=== PATIENT | female | born 1955 | race Caucasian/White ===

== ENCOUNTER 2016-08-21 16:37 | Inpatient (IN) | payer OTHER ==
--- NOTE | ~2016-08-21 | HP ---
Unit #: [id number] #: [id number] Patient: JOSHUA ARREDONDO [id number] [address] [place], [place] [address] [id number] I MR#: [id number] NAME: JOSHUA ARREDONDO ROOM: 468 Age: 61 Sex: F Admission Date: 08/21/2016 : 1955 Attending Physician: Shayna Pichardo M.D. Primary Care Physician: Dahlia George M.D. HISTORY AND PHYSICAL CHIEF COMPLAINT Bright red blood per rectum. DISCUSSION This is a 61-year-old very pleasant lady with past medical history of hypothyroidism, hypertension, dyslipidemia, acid reflux. She is telling me that she had been having some epigastric discomfort about two weeks ago. She had a workup done and she was found to be H. pylori and she was started on tetracycline and Biaxin and lansoprazole, and then she said she was improving and she was having some nausea which is also being resolved, but today, she says she had some bright red blood per rectum which was large episode and she called PMD and was told to come to the emergency room and she had been eventually admitted for further workup and evaluation. She was found to have a little abnormal LFT, AST 60, ALT 63, ALT 103. She denied chest pain. She has some nausea but no vomiting, no abdominal pain. She denies diaphoresis, palpitations, or any other complaint. PAST MEDICAL HISTORY 1. Hypothyroidism. 2. Hypertension. 3. Dyslipidemia. 4. Gastroesophageal reflux disease. 5. Recently diagnosed with H. pylori being treated. PAST SURGICAL HISTORY 1. Appendectomy. 2. Hysterectomy. 3. Cholecystectomy. SOCIAL HISTORY She says that she does not smoke, she quit thirty years ago, does not drink alcohol, no illicit drug use. FAMILY HISTORY Mother with colon cancer at age 60, sister has also breast cancer. ALLERGIES She is allergic to erythromycin. HOME MEDICATIONS Is the followin. Losartan 50 mg daily Unit #: [id number] #: [id number] Patient: JOSHUA ARREDONDO 2. Hydrochlorothiazide 25 mg daily 3. Zofran 4 mg four times daily p.r.n. 4. Tetracycline 500 mg four times daily 5. Lansoprazole 30 mg twice a day 6. Biaxin 500 mg twice daily REVIEW OF SYSTEMS All review of systems of systems negative except in history of present illness. PHYSICAL EXAMINATION GENERAL: Middle-aged female lying in the bed comfortably, currently not in any distress. She is alert, awake, and oriented x3, comfortable, not in any distress. VITAL SIGNS: Current vitals are the following, temperature 98.2, heart rate 88, respiratory rate 16, and blood pressure 127/76, oxygen 100% on room air. HEENT EXAMINATION: Pupils equal reactive to light and accommodation. Head: Normocephalic and atraumatic. NECK: Supple. No jugular venous distention. No thyromegaly. LUNGS: Clear to auscultation. No rhonchi. No wheezing. HEART: S1 and S2, regular rate and rhythm. ABDOMEN: Soft, nontender, and nondistended. Bowel sounds are positive. RECTAL EXAM: Which was done by the emergency room physician, Hemoccult positive. SKIN: No rash. EXTREMITIES: No cyanosis, no clubbing, and no edema. NEUROLOGIC: Alert and oriented x4, cranial nerves II through XII intact. Neuro grossly intact. No focal neurological deficit, power 5/5 on both sides. PSYCHAITRIC: She appears normal, depressed mood. DIAGNOSTIC STUDIES LABORATORY: Laboratory workup is following, today, white count is 7, hemoglobin 13, hematocrit 37, platelets 248, INR is 1.2. Chemistries, sodium 135, potassium 3.3, chloride 99, glucose 104, BUN 26, creatinine 1.2, AST 60, ALT 63, alkaline phosphatase 103, bilirubin total 3.4. Lipase is 24. IMAGING: CT scan of the abdomen shows no acute finding, moderate sized hiatal hernia, diffuse colonic diverticulosis. ASSESSMENT/PLAN 1. Lower GI bleed, will admit the patient and start on clear liquid diet, H and H x2 q.6h, ask GI doctor, Dr. Everett to evaluate. 2. Abnormal LFT, I will get ultrasound and will repeat the CBC and CMP in the morning and hepatitis profile. 3. Recently diagnosed with H. pylori being treated. 4. History of hypothyroidism. 5. Hypertension. 6. Dyslipidemia. 7. Gastroesophageal reflux disease. 8. DVT prophylaxis, will place the patient on SCDs. Unit #: [id number] #: [id number] Patient: JOSHUA ARREDONDO Dictated by Ulysses Gregg/marcelo TD: 08/22/2016 13:48 JOB #: [id number] HISTORY AND PHYSICAL Page 1 of 1 X X HISTORY AND PHYSICAL
--- NOTE | ~2016-08-21 | MR145 ---
[facility] A Service of [facility] RADIOLOGY TEXT RESULTS PATIENT: JOSHUA ARREDONDO LOCATION: [facility] 468- : [birth year] UNIT #: [id number] AGE: [address]: Shayna Pichardo MD SEX: F ORDER DR: [id number] [facility] [address] [facility] [place], [place] [address] [id number] I MR#: [id number] Acc #: [id number] NAME: JOSHUA ARREDONDO : 1955 SEX: F STUDY DATE/TIME: 08/23/2016 12:26 UNIT: [facility] ROOM: [facility] STUDY DESCRIPTION: MR MRCP WWo Contrast Attending Physician: Shayna Pichardo M.D. Ordering Physician: Otto Everett M.D. Primary Care Physician: Dahlia George M.D. MRI CENTER REPORT This report is preliminary unless electronic signature is present. EXAM MRI abdomen with and without contrast MRCP protocol INDICATIONS Elevated liver enzyme levels. Concern for biliary obstruction. PROCEDURE Multiplanar, multisequence MR imaging of the abdomen prior to and following 17 mL of MultiHance COMPARISON STUDIES CT from 08/21/2016 FINDINGS Abdomen without contrast: The liver has normal size and morphology. There is severe hepatic steatosis. Previous cholecystectomy. Common duct measures 6-7 mm which is minimally prominent for the patient's age. There is no evidence for choledocholithiasis. Pancreatic duct nondilated. There is a moderate sized hiatal hernia. The spleen kidneys and pancreas have normal signal. There is a 7 mm benign left adrenal adenoma. There are uncomplicated diverticula in the colon. Abdomen with contrast: No abnormal enhancement in the abdomen. IMPRESSION 1. Mild prominence of the common duct for the patient's age. Favored to represent postcholecystectomy change. There is no evidence for choledocholithiasis or obstructing mass. 2. Significant hepatic steatosis. 3. A 7 mm benign left adrenal adenoma [facility] A Service of [facility] RADIOLOGY TEXT RESULTS PATIENT: JOSHUA ARREDONDO LOCATION: [facility] 468-01 : [birth year] UNIT #: [id number] AGE: [address]: Shayna Pichardo MD SEX: F ORDER DR: Dictated by... Jeet Barrios M.D. THIS IS AN ELECTRONICALLY VERIFIED REPORT Jeet Barrios M.D. at 08/24/2016 7:35 AM RUBIOD/charlotte TD: 08/23/2016 23:38 JOB #: [id number] MRI CENTER REPORT Page 1 of 1 COPY
--- NOTE | ~2016-08-21 | OR ---
Unit #: [id number] #: [id number] Patient: JOSHUA ARREDONDO [id number] [address] [address] [id number] I MR#: [id number] NAME: JOSHUA ARREDONDO. ROOM: 468 Date of Procedure: 08/22/2016 Admission Date: 08/21/2016 Surgeon: Otto Everett M.D. : 1955 Attending Physician: Shayna Pichardo M.D. Primary Care Physician: Dahlia George M.D. OPERATIVE REPORT PROCEDURE PERFORMED Esophagogastroduodenoscopy with biopsies. INDICATIONS FOR PROCEDURE The patient with persistent upper abdominal pain, nausea, vomiting, recent history of H pylori gastritis, undergoing evaluation with upper endoscopy. MEDICATIONS Monitored anesthesia. POSTOPERATIVE FINDINGS 1. Large hiatal hernia along with nonobstructing esophageal ring at GE junction. 2. Chronic appearing gastritis. Multiple large gastric polyps seen. 3. 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 4. Normal duodenum and distal duodenum. PLAN 1. Aggressive PPI therapy. 2. Follow up on the pathology report. DESCRIPTION OF PROCEDURE The patient was explained of the procedure, risks, and benefits along with the risks and benefits of sedation. She was brought to the endoscopy room. Conscious sedation was used. The scope was then passed down the mouth into the esophagus, stomach, duodenum, and distal duodenum. Findings as described. Biopsies taken in the antrum. Gently, the scope was pulled out. She tolerated it well. No major complications were seen. Dictated by... Ulysses Lund/alessandra TD: 08/22/2016 22:23 JOB #: [id number] Unit #: [id number] #: [id number] Patient: JOSHUA ARREDONDO OPERATIVE REPORT Page 1 of 1 X Otto Everett MD X PROCEDURE OPERATIVE NOTE
--- NOTE | ~2016-08-21 | US88 ---
[facility] A Service of [facility] RADIOLOGY TEXT RESULTS PATIENT: JOSHUA ARREDONDO LOCATION: [facility] 468-01 : [birth year] UNIT #: [id number] AGE: [address]: Shayna Pichardo MD SEX: F ORDER DR: [id number] [facility] [address] [place], [place] [address] [id number] I MR#: [id number] Acc #: [id number] NAME: JOSHUA ARREDONDO. : 1955 SEX: F STUDY DATE/TIME: 08/22/2016 13:12 UNIT: [facility] ROOM: [facility] STUDY DESCRIPTION: US Liver or Hepatic Attending Physician: Shayna Pichardo M.D. Ordering Physician: Yudith Cage M.D. Primary Care Physician: Dahlia George M.D. MEDICAL IMAGING REPORT This report is preliminary unless electronic signature is present EXAM Liver ultrasound HISTORY Elevated liver enzymes. FINDINGS Ultrasound examination of the liver demonstrates coarsened and echogenic hepatic parenchyma, corresponding to fatty infiltration of the liver noted on CT abdomen yesterday. No hepatic mass. No biliary ductal dilatation. Common bile duct measures 6 mm in diameter. The gallbladder is absent. No perihepatic ascites. Limited survey of the right kidney demonstrates no hydronephrosis. IMPRESSION 1. Coarsened hepatic echotexture corresponding to fatty infiltration of the liver noted on CT yesterday. 2. No biliary ductal dilatation. 3. Gallbladder is absent. 4. No hepatic mass or perihepatic fluid. Dictated by... Angel Durham M.D. THIS IS AN ELECTRONICALLY VERIFIED REPORT Angel Durham M.D. at 08/23/2016 3:01 PM EVI/[place] TD: 08/23/2016 07:28 JOB #: [id number] MEDICAL IMAGING REPORT Page 1 of 1 COPY
--- NOTE | ~2016-08-21 | CT4 ---
[facility] A Service of [facility] RADIOLOGY TEXT RESULTS PATIENT: JOSHUA ARREDONDO LOCATION: [facility] 468-01 : [birth year] UNIT #: [id number] AGE: [address]: Shayna Pichardo MD SEX: F ORDER DR: [id number] [facility] [address] [facility] [place], [place] [address] [id number] I MR#: [id number] Acc #: [id number] NAME: JOSHUA ARREDONDO. : 1955 SEX: F STUDY DATE/TIME: 08/21/2016 17:16 UNIT: [facility] ROOM: 95220 STUDY DESCRIPTION: CT Abd and Pelv Wo Cont Attending Physician: Shayna Pichardo M.D. Ordering Physician: Checo Lyons D.O. Primary Care Physician: Dahlia George M.D. MEDICAL IMAGING REPORT This report is preliminary unless electronic signature is present EXAM CT abdomen and pelvis without contrast. HISTORY Rectal bleeding and nausea today. TECHNIQUE CT abdomen and pelvis was performed without contrast. This CT exam was performed with one or more of the following radiation dose reduction techniques: automatic exposure control, adjustment of mA and/or kV according to patient size, and iterative reconstruction. FINDINGS CT ABDOMEN: Moderate sized hiatal hernia. Diffuse fatty infiltration of the liver. Cholecystectomy. The spleen, pancreas, kidneys, and adrenal glands are unremarkable. No renal calculi. No hydronephrosis. Moderate diffuse colonic diverticulosis, but no diverticulitis. No free fluid. No inflammatory stranding. Normal caliber abdominal aorta. CT PELVIS: Hysterectomy and appendectomy. Sigmoid diverticulosis. The urinary bladder is normal. IMPRESSION 1. No acute findings in the abdomen or pelvis. 2. Moderate sized hiatal hernia. 3. Fatty infiltration of the liver. 4. Cholecystectomy, appendectomy, and hysterectomy. 5. No urinary calculi or obstruction. 6. Diffuse colonic diverticulosis but no diverticulitis. [facility] A Service of [facility] RADIOLOGY TEXT RESULTS PATIENT: JOSHUA ARREDONDO LOCATION: [place] [address] : [birth year] UNIT #: [id number] AGE: [address]: Shayna Pichardo MD SEX: F ORDER DR: Dictated by... Angel Durham M.D. THIS IS AN ELECTRONICALLY VERIFIED REPORT Angel Durham M.D. at 08/22/2016 5:17 PM DFL/sherry TD: 08/22/2016 08:41 JOB #: [id number] MEDICAL IMAGING REPORT Page 1 of 1 COPY
--- NOTE | ~2016-08-21 | CO ---
Unit #: [id number] #: [id number] Patient: JOSHUA ARREDONDO [id number] [address] [place], [place] [address] [id number] I MR#: [id number] NAME: JOSHUA ARREDONDO. ROOM: 468 Age: 61 Sex: F Admission Date: 08/21/2016 : 1955 Attending Physician: Shayna Pichardo M.D. Primary Care Physician: Dahlia George M.D. Consultation Date: 08/22/2016 CONSULTATION REPORT REASON FOR CONSULTATION Abdominal pain and blood in the stool. HISTORY OF PRESENTING ILLNESS Ms. Arredondo is a pleasant 61-year-old female. She presented to the emergency room as advised by her primary care. She has been treated for H pylori over last couple of weeks with antibiotics for severe upper abdominal pain and persistent nausea and started with blood in the stool day before yesterday. She had bright red blood in the stool in several times. It was small to moderate in amount. Her abdominal pain is somewhat better today. She has no hematemesis. She has no fever, no chills. Her abdominal pain 2 weeks ago was moderate to severe with radiation to the back; however, she has not had any recurrent severe pain since then. PAST MEDICAL HISTORY Significant for gallbladder surgery long time ago for gallbladder stones, also with appendicectomy, and hysterectomy. MEDICATIONS At home included Synthroid, losartan, Crestor, lansoprazole, and recently with clarithromycin and tetracycline. ALLERGIES To erythromycin. FAMILY HISTORY Mother with colon cancer. The patient has been getting colonoscopies regularly, last one was about 3-1/2 years ago. SOCIAL HISTORY Nonsmoker. Nonalcoholic. REVIEW OF SYSTEMS A complete 10-point review of systems was done. She has never had any previously noted liver disease. Review of all other systems was negative also. PHYSICAL EXAMINATION VITAL SIGNS: Stable. T-max 99, pulse 88, respirations 16, blood pressure 127/76. HEENT: Pupils equal and reactive. Sclerae anicteric. Oral mucosa moist. NECK: No JVD. No lymphadenopathy. Unit #: [id number] #: [id number] Patient: JOSHUA ARREDONDO CHEST: Clear to auscultation bilaterally. CARDIOVASCULAR: Regular rate and rhythm. No murmurs. ABDOMEN: Soft, nontender, and nondistended. EXTREMITIES: Without clubbing, cyanosis, or edema. NEUROLOGIC: Intact grossly. No focal deficits. SKIN: Warm and dry. DIAGNOSTIC STUDIES LABORATORY RESULTS: Her hemoglobin is 11, white count of 7, and platelet count of 248. Alk phos 103, lipase of 24, AST and ALT both are 63 and 60, and total bilirubin elevated at 3.4. ASSESSMENT AND PLAN 1. The patient with significant upper abdominal pain, persistent nausea, history of Helicobacter pylori, peptic ulcer disease versus severe gastritis versus others. I will plan on doing an upper endoscopy for evaluation at this time. 2. Blood in the stool. The patient with very high risk for colorectal cancer, has been getting colonoscopies regularly, possibly outpatient colonoscopy to be planned over next few days unless there is a significant drop in hemoglobin. 3. Abdominal pain does suggest possibility of biliary colic, LFT abnormalities also. We will plan on doing an MRCP for further evaluation of the same. 4. Hypertension. 5. Hyperlipidemia. Thank you, Dr. Harrison, for this interesting consult. We will follow along. Dictated by... Otto Everett M.D. BRANDY/alessandra TD: 08/22/2016 22:53 JOB #: [id number] CONSULTATION REPORT Page 1 of 1 X Otto Everett MD CONSULTATION REPORT
--- NOTE | ~2016-08-21 | DS ---
Unit #: [id number] #: [id number] Patient: JOSHUA ARREDONDO [id number] [address] [place], [place] [address] [id number] I MR#: [id number] NAME: JOSHUA ARREDONDO. ROOM: 468 Age: 61 Sex: F Admission Date: 08/21/2016 : 1955 Discharge Date: 08/24/2016 Attending Physician: Shayna Pichardo M.D. Primary Care Physician: Dahlia George M.D. DISCHARGE SUMMARY REASON FOR ADMISSION Bright red blood per rectum. HISTORY OF PRESENT ILLNESS/HOSPITAL COURSE The patient is a very pleasant 61-year-old female with underlying history of hypothyroidism, hypertension, hyperlipidemia, as well as GERD. She recently was diagnosed with H. pylori, followed by Dr. Sepulveda as an outpatient. She was placed on the routine medications and she developed bright red blood per rectum. She does have a strong family history of colon cancer, became concerned and presented to the ER for further evaluation. She was found to have elevated LFTs with an AST of 60, ALT of 63, and therefore, was admitted for the same and evaluation and further workup. Her liver enzymes actually started rising up through hospital course. At one time, her AST and ALT peaked at 95 and 98. Total bilirubin level was 3. This prompted GI consultation with Dr. Everett. The patient underwent upper GI endoscopy with biopsies on 08/22/2016, which did reveal a large hiatal hernia with nonobstructing esophageal ring at the GE junction, chronic appearing gastritis, and biopsies were taken. The patient also underwent an ultrasound of her liver on 08/22/2016 which did reveal coarsened hepatic echotexture consistent with fatty liver infiltration, but no other acute process. The patient also underwent an MRCP with and without contrast with findings consistent with mild prominence of the common bile duct, but there was favored to represent post cholecystectomy change and was no other obstructing mass which was noted. At this point in time, she is currently stable for discharge. It was noted that her potassium this morning was 2.6 and 2.8, it will be appropriately replenished at time of discharge. I will give her potassium supplement as well to take at time of discharge for additional 5 days. She should have a repeat CMP, CBC, as well as magnesium level in approximately 5 to 7 days. At the time of discharge, we will discontinue her hydrochlorothiazide as her blood pressure and systolic have remained in the 100s to 110s and certainly with her low potassium issue this may only exacerbate that problem. Unit #: [id number] #: [id number] Patient: JOSHUA ARREDONDO She is to follow up with primary care physician as stated above within 7 days. She will follow up with the gas main and line fitter for choice after time of discharge. FINAL DISCHARGE DIAGNOSES 1. Bright red blood per rectum. 2. Chronic gastritis. 3. Hypertension. 4. Hypothyroidism. 5. Hyperlipidemia. 6. Gastroesophageal reflux disease. 7. Recent diagnosis of Helicobacter pylori. 8. Hypokalemia. FINAL DISCHARGE MEDICATIONS Zofran 4 mg p.o. q.6 p.r.n., Cozaar 50 mg p.o. daily, Biaxin 500 mg p.o. b.i.d. stop date 08/25/2016, Prevacid 30 mg p.o. b.i.d., tetracycline 500 mg p.o. q.6, Synthroid 100 mcg p.o. daily, potassium K-Dur 20 mEq p.o. daily x5 days. DISCHARGE CONDITION Stable. DISCHARGE DISPOSITION Home. Dictated by... Ulysses Cavazos/alessandra TD: 08/24/2016 23:44 JOB #: [id number] DISCHARGE SUMMARY Page 1 of 1 X Shayna Pichardo MD X DISCHARGE SUMMARY
[2016-08-21 15:12] LABS: BASOPHIL# 0.1 X10e3 (0-0.3); BASOPHIL% 1.4 % (0-2.5); EOSINOPHIL# 0.2 X10e3 (0-0.7); EOSINOPHIL% 2.4 % (0.0-7.0); HEMATOCRIT 37.9 % (35.0-45.0); HEMOGLOBIN 12.1 gm/dL (12.0-16.0); LYMPHOCYTE% 28.1 % (17.0-45.0); MEAN CELL VOLUME 81.2 FL (83-96); MEAN PLATELET VOLUME 8.7 FL (6.5-11.5); MONOCYTE% 13.9 % (3.0-12.0); NEUTROPHIL# 3.8 X10e3 (1.5-7.1); NEUTROPHIL% 54.2 % (40-75); PLATELET COUNT 248 X10e3 (140-420); RED BLOOD COUNT 4.67 X10e (3.90-5.30); RED CELL DISTRIBUTION WIDTH 14.6 % (11.0-15.5)
[2016-08-21 15:27] LABS: DIFF IND NO
[2016-08-21 15:29] LABS: INR 1.2; PARTIAL THROMBOPLASTIN TIME 27.9 SECONDS (23.5-31.3); PROTHROMBIN TIME (PATIENT) 12.4 SECONDS (9.6-11.5)
[2016-08-21 15:32] LABS: ALBUMIN SERUM 3.8 g/dL (3.5-5.0); BILIRUBIN,TOTAL 3.4 mg/dL (0.2-2.0); BUN/CREATININE RATIO 21.66; CALCIUM SERUM 8.9 mg/dL (8.4-10.2); CREATININE SERUM 1.2 mg/dL (0.6-1.4); GLOM FILT RATE Estimated 49.4 mL/min (>60); POTASSIUM 3.3 mmol/L (3.5-5.1); PROTEIN TOTAL SERUM 7.1 g/dL (6.0-8.3)
[~2016-08-21 16:37] MED LIST: ASPIRIN; FLEXERIL10 M1 PO; HCTZ; NAPROSYN500 MG PO; NEXIUM; NIASPAN PO; OMACOR; SYNTHROID; ZETIA; ZOCOR
[2016-08-21] MEDS ORDERED: LOSARTAN POTASS50 MG PO (20:11)
[2016-08-21] MEDS ORDERED: HCTZ PO (20:12)
[2016-08-21] MEDS ORDERED: ZOFRAN ODT4 MG PO (20:13)
[2016-08-21] MEDS ORDERED: TETRACYCLINE PO (20:15)
[2016-08-21] MEDS ORDERED: LANSOPRAZOLE30 M2 PO (20:16)
[2016-08-21] MEDS ORDERED: CLARITHROMYCIN500 MG PO (20:16)
[2016-08-21] MEDS ORDERED: PREVACID PO (20:17)
[2016-08-21 20:24] LABS: URINE SOURCE CLEAN CATCH
[2016-08-21 20:31] LABS: URINE APPEARANCE CLEAR; URINE BILIRUBIN NEG (NEG); URINE BLOOD TRACE (NEG); URINE COLOR YELLOW; URINE GLUCOSE NEG (NEG); URINE KETONE NEG (NEG); URINE LEUKOCYTE ESTERASE TRACE (NEG); URINE NITRATE NEG (NEG); URINE PH 5.5 (5-8); URINE PROTEIN NEG (NEG); URINE SPECIFIC GRAVITY 1.014 (1.003-1.035); URINE UROBILINOGEN 0.2 MG/DL (NEG)
[2016-08-21 20:34] LABS: URBCS1 AUWI 0-2 /[HPF] (0-2); URINE BACTERIA AUWI NEG (NEGATIVE); URINE SQUAMOUS EPITHELIAL CELL NONE SEEN /[HPF]
[2016-08-21 20:35] LABS: CULTURE INDICATED? NO
[2016-08-22 02:43] LABS: HEMATOCRIT 34.6 % (35.0-45.0); HEMOGLOBIN 11.2 gm/dL (12.0-16.0)
[2016-08-22 10:22] LABS: BASOPHIL# 0.1 X10e3 (0-0.3); BASOPHIL% 1.9 % (0-2.5); EOSINOPHIL# 0.1 X10e3 (0-0.7); EOSINOPHIL% 2.3 % (0.0-7.0); HEMOGLOBIN 11.5 gm/dL (12.0-16.0); LYMPHOCYTE# 1.8 X10e3 (1.0-3.5); LYMPHOCYTE% 29.7 % (17.0-45.0); MEAN CELL VOLUME 81.7 FL (83-96); MEAN CORPUSCULAR HGB CONC 31.8 g/dL (30-36); MONOCYTE# 0.9 X10e3 (0-1.0); NEUTROPHIL# 3.2 X10e3 (1.5-7.1); NEUTROPHIL% 52.1 % (40-75); PLATELET COUNT 229 X10e3 (140-420); RED BLOOD COUNT 4.41 X10e (3.90-5.30); RED CELL DISTRIBUTION WIDTH 14.7 % (11.0-15.5); WHITE BLOOD COUNT 6.2 X10e3 (4.0-10.5)
[2016-08-22 10:24] LABS: DIFF IND NO
[2016-08-22 10:50] LABS: ALBUMIN SERUM 3.4 g/dL (3.5-5.0); BILIRUBIN,TOTAL 3.8 mg/dL (0.2-2.0); BUN/CREATININE RATIO 20.9; CALCIUM SERUM 8.9 mg/dL (8.4-10.2); CREATININE SERUM 1.1 mg/dL (0.6-1.4); GLOM FILT RATE Estimated 54.9 mL/min (>60); POTASSIUM 3.5 mmol/L (3.5-5.1); PROTEIN TOTAL SERUM 6.5 g/dL (6.0-8.3)
[2016-08-23 03:33] LABS: HEMATOCRIT 33.6 % (35.0-45.0); HEMOGLOBIN 10.8 gm/dL (12.0-16.0); MEAN CELL VOLUME 80.6 FL (83-96); MEAN CORPUSCULAR HGB CONC 32.2 g/dL (30-36); MEAN PLATELET VOLUME 8.4 FL (6.5-11.5); RED BLOOD COUNT 4.17 X10e (3.90-5.30); RED CELL DISTRIBUTION WIDTH 14.4 % (11.0-15.5); WHITE BLOOD COUNT 7.2 X10e3 (4.0-10.5)
[2016-08-23 04:09] LABS: BUN/CREATININE RATIO 17.27; CALCIUM SERUM 8.6 mg/dL (8.4-10.2); CREATININE SERUM 1.1 mg/dL (0.6-1.4); GLOM FILT RATE Estimated 54.9 mL/min (>60); POTASSIUM 3.5 mmol/L (3.5-5.1); PROTEIN TOTAL SERUM 5.6 g/dL (6.0-8.3)
[2016-08-24 05:11] LABS: HEMATOCRIT 32.2 % (35.0-45.0); HEMOGLOBIN 10.6 gm/dL (12.0-16.0); MEAN CELL VOLUME 80.6 FL (83-96); MEAN CORPUSCULAR HEMOGLOBIN 26.5 PG (28-34); MEAN CORPUSCULAR HGB CONC 32.8 g/dL (30-36); MEAN PLATELET VOLUME 8.9 FL (6.5-11.5); RED BLOOD COUNT 3.99 X10e (3.90-5.30); RED CELL DISTRIBUTION WIDTH 14.7 % (11.0-15.5); WHITE BLOOD COUNT 7.1 X10e3 (4.0-10.5)
[2016-08-24 07:05] LABS: ALBUMIN SERUM 2.8 g/dL (3.5-5.0); BILIRUBIN,TOTAL 1.9 mg/dL (0.2-2.0); BUN/CREATININE RATIO 16.36; CALCIUM SERUM 8.4 mg/dL (8.4-10.2); CREATININE SERUM 1.1 mg/dL (0.6-1.4); GLOM FILT RATE Estimated 54.9 mL/min (>60); PROTEIN TOTAL SERUM 5.7 g/dL (6.0-8.3)
[2016-08-24 07:08] LABS: POTASSIUM 2.8 mmol/L (3.5-5.1)
[2016-08-24] MEDS ORDERED: K-DUR20 ME2 PO (10:59)
[2016-08-25 08:04] LABS: HA AB IGM (HEPPAN) Nonreactive (Nonreactive); HB CORE AB IGM (HEPPAN) Nonreactive (Nonreactive); HB S AG (HEPPAN) Nonreactive (Nonreactive); HEP C AB (HEPPAN) Nonreactive (Nonreactive); HEP C AB SIGNAL TO CUTOFF 0.02 ratio (<1.00)
== END 2016-08-24 12:00 | disposition home or self-care (01) | DRG 378 ==
LOC: CED 16:37 → CEDOF 20:30 → C4C 08-22 09:00
PROVIDERS: Emergency Medicine; Family Medicine; Internal Medicine; Student in an Organized Health Care Education/Training Program
PROC: 0DB68ZX Excision of Stomach, Via Natural or Artificial Opening Endoscopic, Diagnostic (ICD-10-PCS; principal; 2016-08-22 09:28)
DX: K62.5 Hemorrhage of anus and rectum (principal); D62 Acute posthemorrhagic anemia; I10 Essential (primary) hypertension; K29.50 Unspecified chronic gastritis without bleeding; E03.9 Hypothyroidism, unspecified; E78.5 Hyperlipidemia, unspecified; K21.9 Gastro-esophageal reflux disease without esophagitis; E87.6 Hypokalemia; Z88.1 Allergy status to other antibiotic agents; K44.9 Diaphragmatic hernia without obstruction or gangrene; K31.819 Angiodysplasia of stomach and duodenum without bleeding
CPT/HCPCS: 36415; 74176; 74183; 76705; 80053; 80074; 81003; 83690; 83735; 85014; 85018; 85025; 85027; 85610; 85730; 88305; 88312; 99285; A9577; C9113; J2250; J2405; J2543; J3010; J3475